=== PATIENT | female | born 1945 | race Caucasian/White ===

== ENCOUNTER → 2016-05-25 17:07 | Outpatient (CLI) | payer MEDICARE, OTHER ==
[2015-02-16 06:53] VITALS: BMI 22.0
[~2016-05-25 17:07] MED LIST: ALDACTONE50 MG PO; ALENDRONATE SOD70 MG PO; BACTRIM DS TABL1 TAB PO; CELLCEPT500 MG PO; CHILDREN'S ASPI81 MG PO; CHRONULAC30 ML PO; HARVONI PO; NORVASC5 MG PO; PROZAC20 MG PO; TACROLIMUS ANHYD1 MG PO; VITAMIN A10000 UNIT PO; VITAMIN D31000 UNIT PO; XIFAXAN200 MG PO; ZINC-220220 MG PO; ZOFRAN4 MG PO; [UNRECOGNIZED DRUG - REMARK]
== END | disposition home or self-care (01) ==
LOC: D.MAMMO 15:00
DX: Z12.31 Encounter for screening mammogram for malignant neoplasm of breast (principal)